=== PATIENT | female | born 1965 ===

== ENCOUNTER 2017-06-24 10:23 | Emergency (ER) | payer OTHER ==
[2017-06-24 10:24] VITALS: BMI 23.6
[2017-06-24 10:34] VITALS: TEMP 97.8; O2SAT 100
[2017-06-24] MEDS ORDERED: DiphenhydrAMINE 50 mg/ml Inj ONE (11:29)
[2017-06-24 11:42] LABS: BASO # 0.1 K/uL (0.0-0.2); EOS # 0.2 K/uL (0.0-0.7); EOS % 2.8 % (0.0-4.0); LYMPH # 1.7 K/uL (1.0-4.3); LYMPH % 28.8 % (20.0-40.0); MEAN CORPUSCULAR HEMOGLOBIN 30.2 pg (27.0-31.0); MEAN CORPUSCULAR HGB CONC 33.2 g/dL (33.0-37.0); MEAN PLATELET VOLUME 9.1 fL (7.2-11.7); MONO # 0.5 K/uL (0.0-0.8); MONO % 7.9 % (0.0-10.0); NEUT # 3.5 K/uL (1.8-7.0); NEUT % 58.5 % (50.0-75.0); RBC 4.51 Mil/uL (3.80-5.20); RED CELL DISTRIBUTION WIDTH 13.7 % (11.5-14.5); WHITE BLOOD COUNT 5.9 K/uL (4.8-10.8)
[2017-06-24] MEDS: DiphenhydrAMINE 50 mg/ml Inj IVP STA (11:42)
[2017-06-24 11:47] LABS: HEMOGLOBIN 13.6 g/dL (11.0-16.0)
[2017-06-24 11:54] LABS: ALBUMIN 4.5 g/dL (3.5-5.0); ALT/SGPT 32 U/L (9-52); AST/SGOT 52 U/L (14-36); BLOOD UREA NITROGEN 14 mg/dL (7-17); GFR AFRICAN-AMERICAN > 60; GFR NON-AFRICAN AMERICAN > 60
[2017-06-24 12:07] LABS: ALB/GLOB RATIO 1.1 (1.0-2.1)
--- NOTE | 2017-06-24 13:35 | C.PDOC ---
History Of Present Illness 51-year-old female, PMHx includes RA, states she has been experiencing swelling in B/L hands and B/L feet for the past four days. States she has also been experiencing dizziness that is associated with a headache and bodyaches for the past 3 days, but has not taken any medication for it. Patient denies numbness/ weakness, fever, head injury, nausea/vomiting. chest pain, shortness of breath or any other associated symptoms. No other complaints at this time. Time Seen by Provider: 06/24/17 10:44 Chief Complaint (Nursing): Dizziness/Lightheaded History Per: Patient History/Exam Limitations: no limitations Onset/Duration Of Symptoms: Days Current Symptoms Are (Timing): Still Present Severity: Moderate Past Medical History Reviewed: Historical Data, Nursing Documentation, Vital Signs Vital Signs: Last Vital Signs Temp 97.8 F 06/24/17 10:28 Pulse 65 06/24/17 13:55 Resp 16 06/24/17 13:55 BP 120/83 06/24/17 13:55 Pulse Ox 100 06/24/17 13:55 - Medical History PMH: Arthritis (neck), Back Problems, Diabetes, Gastritis, HTN, Chronic Kidney Disease - [facility] Procedures CORRECT URETEROPELV JUNC (11/29/13) CYSTOSCOPY NEC (01/22/14) OTHER AND UNSPECIFIED ROBOTIC ASSISTED PROCEDURE (11/29/13) REMOV URETERAL DRAIN (01/22/14) URETERAL CATHETERIZATION (11/29/13) Family History: States: No Known Family Hx - Social History Hx Tobacco Use: No Hx Alcohol Use: No Hx Substance Use: No - Immunization History Hx Influenza Vaccination: No Hx Pneumococcal Vaccination: No Review Of Systems Except As Marked, All Systems Reviewed And Found Negative. Constitutional: Negative for: Fever, Chills Cardiovascular: Negative for: Chest Pain Respiratory: Negative for: Cough, Shortness of Breath Gastrointestinal: Negative for: Nausea, Vomiting Musculoskeletal: Positive for: Other (swelling B/L hands and feet) Neurological: Negative for: Weakness, Numbness, Headache, Dizziness Physical Exam - Physical Exam Appears: Non-toxic, No Acute Distress Skin: Warm, Dry, No Rash Head: Atraumatic, Normacephalic Eye(s): bilateral: Normal Inspection, PERRL Nose: Normal Oral Mucosa: Moist Lips: Normal Appearing Neck: Normal ROM Cardiovascular: Rhythm Regular, No Murmur Respiratory: Normal Breath Sounds, No Accessory Muscle Use Back: Normal Inspection Extremity: Normal ROM, No Tenderness, Capillary Refill (<2 seconds), No Deformity, Swelling (B/L FISTS AND SECOND MCP JOINTS. ) Neurological/Psych: Oriented x3, Normal Speech ED Course And Treatment - Laboratory Results Result Diagrams: 06/24/17 11:39 06/24/17 11:39 O2 Sat by Pulse Oximetry: 100 Disposition - Disposition Referrals: [facility] [Outside] Disposition: HOME/ ROUTINE Disposition Time: 14:00 Condition: GOOD Additional Instructions: Follow up with the medical doctor within 1-2 days. Return if worsened. Prescriptions: Acetaminophen/Butalbital/Caf [Fioricet] 1 tab PO TID PRN #20 tab PRN Reason: Headache Metoclopramide [Reglan] 1 tab PO TID PRN #25 tab PRN Reason: Nausea/Vomiting Naproxen [Naprosyn] 500 mg PO BID #20 tab Instructions: Rheumatoid Arthritis (ED), Vertigo (ED) Forms: [facility] (Turkish), Work Excuse - Clinical Impression Clinical Impression: Joint pain, Dizziness - Scribe Statement The provider has reviewed the documentation as recorded by the Scribe (Radha Infante) All medical record entries made by the Scribe were at my direction and personally dictated by me. I have reviewed the chart and agree that the record accurately reflects my personal performance of the history, physical exam, medical decision making, and the department course for this patient. I have also personally directed, reviewed, and agree with the discharge instructions and disposition.
[2017-06-24 13:55] VITALS: BP 120/83; PULSE 65; RESP 16
== END 2017-06-24 14:17 | disposition home or self-care (01) ==
LOC: C.ER 10:23
DX: R42 Dizziness and giddiness (principal); M25.50 Pain in unspecified joint; I12.9 Hypertensive chronic kidney disease with stage 1 through stage 4 chronic kidney disease, or unspecified chronic kidney disease; N18.9 Chronic kidney disease, unspecified
CPT/HCPCS: 80053; 85025; 96374; 96375; 99285; J1200; J1885; J2765

== ENCOUNTER 2017-10-18 11:18 | Emergency (ER) | payer OTHER ==
[2017-10-18 11:19] VITALS: BMI 23.6
--- NOTE | 2017-10-18 12:45 | C.PDOC ---
History Of Present Illness 51 y/o female with history of HTN, DM presents to ED with c/o low back pain radiating to left hip since yesterday. Patient denies abdominal pain, dysuria, hematuria, numbness, weakness or any other complaints at this time. Time Seen by Provider: 10/18/17 12:14 Chief Complaint (Nursing): Back Pain History Per: Patient History/Exam Limitations: no limitations Onset/Duration Of Symptoms: Days Current Symptoms Are (Timing): Still Present Quality Of Discomfort: "Pain" Past Medical History Reviewed: Historical Data, Nursing Documentation, Vital Signs Vital Signs: Last Vital Signs Temp 98.0 F 10/18/17 14:44 Pulse 62 10/18/17 14:44 Resp 16 10/18/17 14:44 BP 150/82 10/18/17 14:44 Pulse Ox 98 10/18/17 14:44 - Medical History PMH: Arthritis, Back Problems, Diabetes, Gastritis, HTN, Chronic Kidney Disease , Rheumatoid Arthritis Surgical History: No Surg Hx - [facility] Procedures CORRECT URETEROPELV JUNC (11/29/13) CYSTOSCOPY NEC (01/22/14) OTHER AND UNSPECIFIED ROBOTIC ASSISTED PROCEDURE (11/29/13) REMOV URETERAL DRAIN (01/22/14) URETERAL CATHETERIZATION (11/29/13) Family History: States: No Known Family Hx - Social History Hx Tobacco Use: No Hx Alcohol Use: No Hx Substance Use: No - Immunization History Hx Influenza Vaccination: No Hx Pneumococcal Vaccination: No Review Of Systems Constitutional: Negative for: Fever, Chills Gastrointestinal: Negative for: Nausea, Vomiting, Abdominal Pain Genitourinary: Negative for: Dysuria, Hematuria Musculoskeletal: Positive for: Back Pain Skin: Negative for: Rash Neurological: Negative for: Weakness, Numbness Physical Exam - Physical Exam Appears: Non-toxic, No Acute Distress Skin: Warm, Dry, No Rash Head: Atraumatic, Normacephalic Oral Mucosa: Moist Neck: Normal ROM, Supple Cardiovascular: Rhythm Regular Respiratory: Normal Breath Sounds, No Rales, No Rhonchi, No Wheezing Gastrointestinal/Abdominal: Soft, No Tenderness, No Guarding, No Rebound Back: No CVA Tenderness, No Vertebral Tenderness, Other (Left mid axillary line tenderness) Neurological/Psych: Oriented x3, Normal Speech, Normal Cognition, Normal Motor, Normal Sensation ED Course And Treatment O2 Sat by Pulse Oximetry: 100 (RA) Pulse Ox Interpretation: Normal Disposition Counseled Patient/Family Regarding: Studies Performed, Need For Followup, Rx Given - Disposition Referrals: Mary Grace Landis MD [Staff Provider] - Disposition: HOME/ ROUTINE Disposition Time: 14:34 Condition: STABLE Prescriptions: traMADol/Acetaminophen [Ultracet 37.5/325 mg] 1 tab PO BID PRN #8 tab PRN Reason: pain Instructions: Muscle and Bone Pain (DC) Forms: [facility] (Marshallese), General Discharge Instructions - Clinical Impression Clinical Impression: Musculoskeletal back pain - Scribe Statement The provider has reviewed the documentation as recorded by the Scribe Kyler Carrasco All medical record entries made by the Dorothyibe were at my direction and personally dictated by me. I have reviewed the chart and agree that the record accurately reflects my personal performance of the history, physical exam, medical decision making, and the department course for this patient. I have also personally directed, reviewed, and agree with the discharge instructions and disposition.
[2017-10-18 13:04] LABS: SQUAMOUS EPITHIAL < 1 /hpf (0-5); URINE BACTERIA RARE (<OCC); URINE BILIRUBIN NEGATIVE (NEGATIVE); URINE BLOOD NEGATIVE (NEGATIVE); URINE CLARITY Clear (Clear); URINE COLOR Colorless (YELLOW); URINE GLUCOSE (UA) NORMAL (Normal); URINE LEUKOCYTE ESTERASE NEG Leu/uL (Negative); URINE PROTEIN NEGATIVE (NEGATIVE); URINE UROBILINOGEN NORMAL mg/dL (0.2-1.0)
--- NOTE | 2017-10-18 14:00 | RAD ---
HISTORY: pain right sight COMPARISON: No prior. TECHNIQUE: Chest PA and lateral FINDINGS: LUNGS: No active pulmonary disease. PLEURA: No significant pleural effusion identified. No pneumothorax apparent. CARDIOVASCULAR: Normal. OSSEOUS STRUCTURES: No significant abnormalities. VISUALIZED UPPER ABDOMEN: Normal. OTHER FINDINGS: None. IMPRESSION: No active disease.
[2017-10-18] MEDS ORDERED: Lidocaine 5% Patch TD STA (14:23)
[2017-10-18] MEDS ORDERED: Lidocaine 5% Patch TD ONE (14:28)
[2017-10-18 14:47] VITALS: BP 150/82; PULSE 62; RESP 16; TEMP 98
[2017-10-18 18:56] VITALS: O2SAT 100
== END 2017-10-18 14:46 | disposition home or self-care (01) ==
LOC: C.ER 11:18
DX: M54.5 Low back pain (principal); M06.9 Rheumatoid arthritis, unspecified; E11.9 Type 2 diabetes mellitus without complications; I12.9 Hypertensive chronic kidney disease with stage 1 through stage 4 chronic kidney disease, or unspecified chronic kidney disease; N18.9 Chronic kidney disease, unspecified

== ENCOUNTER 2018-05-06 13:39 | Emergency (ER) | payer OTHER ==
[2018-05-06 13:39] VITALS: BMI 23.6
[2018-05-06 13:54] VITALS: RESP 16
--- NOTE | 2018-05-06 16:38 | C.PDOC ---
Time Seen by Provider: 05/06/18 13:53 Chief Complaint (Nursing): Eye Problem Past Medical History Vital Signs: Last Vital Signs Temp 97.5 F L 05/06/18 13:54 Pulse 71 05/06/18 13:54 Resp 16 05/06/18 13:54 BP 132/83 05/06/18 13:54 Pulse Ox 97 05/06/18 13:54 - Medical History PMH: Arthritis, Back Problems, Diabetes, Gastritis, HTN, Chronic Kidney Disease, Rheumatoid Arthritis - [facility] Procedures CORRECT URETEROPELV JUNC (11/29/13) CYSTOSCOPY NEC (01/22/14) OTHER AND UNSPECIFIED ROBOTIC ASSISTED PROCEDURE (11/29/13) REMOV URETERAL DRAIN (01/22/14) URETERAL CATHETERIZATION (11/29/13) - Social History Hx Tobacco Use: No Hx Alcohol Use: No Hx Substance Use: No - Immunization History Hx Influenza Vaccination: No Hx Pneumococcal Vaccination: No ED Course And Treatment O2 Sat by Pulse Oximetry: 97 Disposition - Disposition Referrals: Khang Valerio MD [Staff Provider] - Disposition: HOME/ ROUTINE Disposition Time: 16:36 Condition: GOOD Forms: Gen Discharge Inst Japanese, [facility] (Japanese) - Clinical Impression Clinical Impression: Chalazion right lower eyelid
--- NOTE | 2018-05-06 16:39 | C.PDOC ---
History Of Present Illness 52 year old female presents to the emergency department with complaints of swelling and pain around her right eye for the last three days. Patient denies blurry vision, trauma, and fever. Time Seen by Provider: 05/06/18 13:53 Chief Complaint (Nursing): Eye Problem History Per: Patient History/Exam Limitations: no limitations Onset/Duration Of Symptoms: Days (3) Current Symptoms Are (Timing): Still Present Quality: "Pain" Associated Symptoms: Pain, Swelling. denies: Decreased Vision Past Medical History Reviewed: Historical Data, Nursing Documentation, Vital Signs Vital Signs: Last Vital Signs Temp 97.5 F L 05/06/18 13:54 Pulse 71 05/06/18 13:54 Resp 16 05/06/18 13:54 BP 132/83 05/06/18 13:54 Pulse Ox 97 05/06/18 13:54 - Medical History PMH: Arthritis, Back Problems, Diabetes, Gastritis, HTN, Chronic Kidney Disease, Rheumatoid Arthritis Surgical History: No Surg Hx - [facility] Procedures CORRECT URETEROPELV JUNC (11/29/13) CYSTOSCOPY NEC (01/22/14) OTHER AND UNSPECIFIED ROBOTIC ASSISTED PROCEDURE (11/29/13) REMOV URETERAL DRAIN (01/22/14) URETERAL CATHETERIZATION (11/29/13) Family History: States: No Known Family Hx - Social History Hx Tobacco Use: No Hx Alcohol Use: No Hx Substance Use: No - Immunization History Hx Influenza Vaccination: No Hx Pneumococcal Vaccination: No Review Of Systems Constitutional: Negative for: Fever Eyes: Positive for: Pain (under eye), Other (swelling). Negative for: Vision Change ENT: Negative for: Ear Pain, Throat Pain Skin: Negative for: Rash Neurological: Negative for: Weakness, Numbness Physical Exam - Physical Exam Appears: Non-toxic, No Acute Distress Skin: Warm, Dry Head: Atraumatic, Normacephalic, Swelling (minimal swelling distal to lateral right eye. no overlying erythema or warmth. ) Eye(s): bilateral: Normal Inspection, PERRL, EOMI, right: Other (forming pustule noted to the inner lateral portion of the lower eyelid, ) Oral Mucosa: Moist Neurological/Psych: Oriented x3, Normal Speech, Normal Cognition ED Course And Treatment O2 Sat by Pulse Oximetry: 97 (RA) Pulse Ox Interpretation: Normal Medical Decision Making Medical Decision Making: Plan: Tylenol 650mg PO Disposition - Disposition Referrals: Khang Valerio MD [Staff Provider] - Disposition: HOME/ ROUTINE Disposition Time: 16:45 Condition: GOOD Additional Instructions: Aplique compresas tibias en el evelyn derecho varias veces al da. Tylenol para el dolor. Foll con la Dra. Valerio, oculista en la prxima semana. Prescriptions: Acetaminophen [Tylenol 325mg tab] 650 mg PO Q4 #50 tab Instructions: Chalazion Forms: Gen Discharge Inst Slovenian, [facility] (Slovenian) Print Language: MICRONESIAN - Clinical Impression Clinical Impression: Chalazion right lower eyelid - PA / ELECTRICIAN LOCOMOTIVE / Resident Statement MD/DO has reviewed & agrees with the documentation as recorded. - Scribe Statement The provider has reviewed the documentation as recorded by the Scribe All medical record entries made by the Scribe were at my direction and personally dictated by me. I have reviewed the chart and agree that the record accurately reflects my personal performance of the history, physical exam, medical decision making, and the department course for this patient. I have also personally directed, reviewed, and agree with the discharge instructions and disposition.
[2018-05-06 16:41] VITALS: BP 125/80; PULSE 56; TEMP 98.4
[2018-05-06 16:42] VITALS: O2SAT 97
== END 2018-05-06 16:48 | disposition home or self-care (01) ==
LOC: C.ER 13:39
DX: H00.12 Chalazion right lower eyelid (principal); M06.9 Rheumatoid arthritis, unspecified; I12.9 Hypertensive chronic kidney disease with stage 1 through stage 4 chronic kidney disease, or unspecified chronic kidney disease; N18.9 Chronic kidney disease, unspecified; E11.9 Type 2 diabetes mellitus without complications